=== PATIENT | male | born 1940 | race Caucasian/White ===

== ENCOUNTER 2020-03-30 11:38 | Emergency (ER) | payer MEDICARE ==
[~2020-03-30] VITALS: Ht 180.3 cm; Wt 78.5 kg
--- NOTE | 2020-03-30 11:39 | NUR ---
ECG done at bedside as ordered by Dr. Irvin. Patient tolerated the procedure well. ER Physician given copy of EKG for review.
[2020-03-30 11:42] VITALS: BP_SYST 161
--- NOTE | 2020-03-30 11:42 | NUR ---
Patient to ER bed 07 to gown for evaluation. Side rails up. Report given to NEVILLE PEREIRA.
--- NOTE | 2020-03-30 11:43 | NUR ---
Patient BROUGHT IN BY AMBULANCE in the ED c/o DIZZINESS, NAUSEA AND VOMITING THAT STARTED TODAY. Denied any chest pain or shortness of breath. Denied any fevers AND chills. Patient is alert and oriented x4, respirations even and unlabored, speaking in full sentences, and ambulating with a steady gait. VSS, pain level 0/10. Informed of the approximate wait time. Instructed to notify ED staff for any changes in condition or worsening of symptoms while waiting to be seen by an ED provider. Patient verbalized understanding.
--- NOTE | 2020-03-30 11:49 | NUR ---
# 20 gauge angiocath placed to EVELYN. Use of asceptic technique. Opsite placed over site. Blood return noted. Blood for lab drawn from site. Flushed with 10 cc of normal saline. No evidence of infiltration noted. Patient tolerated well.
--- NOTE | 2020-03-30 11:59 | NUR ---
ER Dr. Irvin at bedside examining patient.
[2020-03-30] MEDS ORDERED: NACL 0.9% 1,000 ML IV ONE (12:15)
[2020-03-30] MEDS ORDERED: ONDANSETRON HCL 4 MG/2 ML VIAL IVP ONE (12:15)
[2020-03-30 12:28] LABS: BASOPHILS % (AUTO) 0.2 % (0.0-2.0); EOSINOPHILS % (AUTO) 0.3 % (0.0-4.0); HEMATOCRIT 37.2 % (36-54); HEMOGLOBIN 12.4 g/dL (14.0-18.0); LYMPHOCYTES # (AUTO) 0.3 K/uL (1.0-5.5); LYMPHOCYTES % (AUTO) 3.2 % (20.5-51.5); MEAN CORPUSCULAR HEMOGLOBIN 33 pg (27-31); MEAN CORPUSCULAR HGB CONC 33 % (32-36); MEAN CORPUSCULAR VOLUME 97 fL (79.0-98.0); MONOCYTES # (AUTO) 0.1 K/uL (0.0-1.0); MONOCYTES % (AUTO) 1.1 % (1.7-9.3); NEUTROPHILS # (AUTO) 8.6 K/uL (1.8-7.7); NEUTROPHILS % (AUTO) 95.2 % (40.0-70.0); PLATELET COUNT (AUTO) 148 K/uL (130-430); RED BLOOD CELL COUNT(AUTO) 3.83 MIL/uL (4.2-6.2); RED CELL DISTRIBUTION WIDTH 13.5 % (9.0-15.0)
[2020-03-30 12:39] LABS: ANION GAP 7 (5-15); CALCIUM 8.7 mg/dL (8.4-11.0); CHLORIDE 103 mmol/L (98-107); CREATININE 2.58 mg/dL (0.55-1.30); GLUCOSE 130 mg/dL (70-99); POTASSIUM 3.8 mmol/L (3.5-5.1); SODIUM SERUM 136 mmol/L (136-145); UREA NITROGEN, BLOOD 30 mg/dL (8-21)
[2020-03-30 12:43] LABS: ALANINE AMINOTRANSFERASE 22 U/L (12-78); ALBUMIN 3.1 g/dL (3.4-4.8); ASPARTATE AMINOTRANSFERASE 16 U/L (10-37); TOTAL BILIRUBIN 0.7 mg/dL (0.0-1.0)
[2020-03-30 13:15] VITALS: BP_SYST 154
--- NOTE | 2020-03-30 13:15 | NUR ---
Patient given written and verbal discharge instructions and verbalizes understanding. ER MD discussed with patient the results and treatment provided. Patient in stable condition. ID arm band removed. IV catheter removed intact and dressing applied, no active bleeding. Rx of ZOFRAN & CIPRO given. Patient educated on pain management and to follow up with PMD. Pain Scale 0/10. Opportunity for questions provided and answered. Medication side effect fact sheet provided.
--- NOTE | 2020-04-01 10:54 | NUR ---
Received culture results, Dr. Green ordered alternate antibiotic for patient. 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 Pt verbalized understanding.
== END 2020-03-30 13:15 | disposition home or self-care (01) ==
LOC: SED 11:38
DX: N39.0 Urinary tract infection, site not specified (principal); R11.2 Nausea with vomiting, unspecified; Z85.51 Personal history of malignant neoplasm of bladder
CPT/HCPCS: 36415; 80053; 81002; 85025; 87086; 93005; 96361; 96374; 99284; J2405; J7030